=== PATIENT | female | born 1940 | race Caucasian/White ===

== ENCOUNTER 2019-06-10 07:27 | Day surgery (SDC) | payer OTHER ==
[2019-05-26 14:35] VITALS: BMI 30.5
--- NOTE | 2019-05-27 08:15 | HP ---
Satellite [facility] - Chief Complaint Chief Complaint: right middle finger pain, locking History of Present Illness: right middle trigger finger History Source: Patient Limitations to Obtaining History: No Limitations - Past Medical History Allergies/Adverse Reactions: Allergies Allergy/AdvReac Type Severity Reaction Status Date / Time No Known Allergies Allergy Verified 05/26/19 14:35 - Current Medications Current Medications: Home Medications Medication Instructions Recorded Aspirin [Ecotrin] 81 mg PO DAILY 05/26/19 Gabapentin [Neurontin -] 100 mg PO AM 05/26/19 Metformin HCl [Metformin HCl ER] 500 mg PO PRN 05/26/19 Omeprazole 20 mg PO DAILY 05/26/19 Sitagliptin Phosphate [Januvia] 50 mg PO DAILY 05/26/19 Satellite Physical Exam - Physical Examination General Appearance: Well Nourished ENT: Clear Lung: Clear to auscultation Heart: Regular rate & rhythm Breasts: Soft Abdomen: Soft Extremities: No edema Satellite Impression/Plan - Impression/Plan Impression: right middle finger trigger finger Operative Procedure: right middle finger trigger finger release Date to be Performed: 05/27/19
[~2019-06-10 07:27] MED LIST: LACTATED RINGERS SOLUTION 1,000 ML IV SCH; ONDANSETRON 4 MG/2 ML VIAL IVPUSH PRN; oxyCODONE HCL 5 MG TABLET PO PRN
--- NOTE | 2019-06-10 10:17 | HP ---
Satellite [facility] - Chief Complaint Chief Complaint: right middle finger trigger finger History of Present Illness: right middle finger pain History Source: Patient Limitations to Obtaining History: No Limitations - Past Medical History Allergies/Adverse Reactions: Allergies Allergy/AdvReac Type Severity Reaction Status Date / Time No Known Allergies Allergy Verified 05/26/19 14:35 - Current Medications Current Medications: Home Medications Medication Instructions Recorded Aspirin [Ecotrin] 81 mg PO DAILY 05/26/19 Gabapentin [Neurontin -] 100 mg PO AM 05/26/19 Metformin HCl [Metformin HCl ER] 500 mg PO PRN 05/26/19 Omeprazole 20 mg PO DAILY 05/26/19 Sitagliptin Phosphate [Januvia] 50 mg PO DAILY 05/26/19 Acetaminophen [Tylenol] 650 mg PO PRN 06/10/19 Satellite Physical Exam - Physical Examination Vital Signs: Vital Signs Period Temp Pulse Resp BP Sys/Nichols Pulse Ox Last 24 Hr 97.8 F-98 F 70-72 18-18 150-150/70-71 100 General Appearance: Well Nourished ENT: Clear Lung: Clear to auscultation Heart: Regular rate & rhythm Breasts: Soft Abdomen: Soft Extremities: No edema Satellite Impression/Plan - Impression/Plan Impression: right middle finger trigger finger Operative Procedure: right middle finger trigger finger release Date to be Performed: 06/10/19
[2019-06-10] MEDS ORDERED: LACTATED RINGERS SOLUTION 1,000 ML IV SCH (11:30)
[2019-06-10] MEDS ORDERED: ONDANSETRON 4 MG/2 ML VIAL IVPUSH PRN ×2 (11:30→13:33)
[2019-06-10] MEDS ORDERED: MIDAZOLAM HCL 2 MG/2 ML SINGLE DOSE VIAL ONE (11:44)
[2019-06-10] MEDS ORDERED: LIDOCAINE HCL 1%, 10 MG/ML (20ML VIAL) ONE (11:58)
[2019-06-10] MEDS ORDERED: BUPIVACAINE HCL/PF 0.5% (5 MG/ML) 30 ML VIAL IJ ONE ×3 (11:59→14:30)
[2019-06-10] MEDS ORDERED: PROPOFOL 20 ML ONE (12:02)
[2019-06-10] MEDS ORDERED: BUPIVACAINE HCL/PF 0.5% (5MG/ML) 10 ML VIAL IJ ONE (12:18)
[2019-06-10] MEDS ORDERED: LIDOCAINE HCL 1%, 10 MG/ML (50 mL VIAL) IJ ONE (12:18)
[2019-06-10] MEDS ORDERED: LIDOCAINE HCL 1%, 10 MG/ML (20ML VIAL) INF ONE ×2 (12:36→14:30)
[2019-06-10] MEDS ORDERED: PROMETHAZINE HCL 25 MG/1 ML VIAL IVPUSH PRN (13:33)
[2019-06-10] MEDS ORDERED: oxyCODONE HCL 5 MG TABLET PO PRN (13:33)
[2019-06-10] MEDS ORDERED: ceFAZolin SODIUM 1 GM VIAL IVPB ONE (14:20)
--- NOTE | 2019-06-10 14:52 | OP ---
Operative Note - Note: Operative Date: 06/10/19 Pre-Operative Diagnosis: right middle finger trigger finger Operation: right middle finger trigger finger release, tendon sheath excision Post-Operative Diagnosis: Same as Pre-op Surgeon: Javier Ashby Anesthesiologist/MANAGER OF BUSINESS OPERATIONS: Darby Graves Anesthesia: Local, MAC Specimens Removed: tendon sheath Estimated Blood Loss (mls): 0 Drains, Volume Out (mls): 0 Blood Volume Replaced (mls): 0 Fluid Volume Replaced (mls): 500 Operative Report Dictated: Yes
[2019-06-10 16:14] VITALS: BP 138/64; PULSE 78; TEMP 98
--- NOTE | 2019-06-10 19:35 | SPEC ---
DATE OF OPERATION: 06/10/2019 PREOPERATIVE DIAGNOSIS: Right middle finger trigger finger. POSTOPERATIVE DIAGNOSIS: Right middle finger trigger finger. PROCEDURE: Right middle finger trigger finger release and tendon sheath excision. SURGEON: Jerry Pittman MD ASSISTANTS: None. ANESTHESIOLOGIST: Luis Graves MD ANESTHESIA: MAC anesthesia with local injection 10 mL of 0.5% Marcaine and 1% Lidocaine mix. DRAINS: None. COMPLICATIONS: None. SPECIMENS: Tendon sheath, right middle finger. BLOOD LOSS: None. BLOOD GIVEN: None. FLUID REPLACEMENT: Plasma-Lyte 500 mL. This patient is a 79-year-old female with a right middle finger trigger finger. After understanding the potential risks, complications, alternatives, and benefits of surgery versus nonsurgical treatment, the patient elected to undergo this procedure. PROCEDURE: The patient was brought to the operating room, IV was placed, IV sedation was given. One gram of intravenous Ancef given. A tourniquet was applied to the right upper arm and the right upper extremity was prepped and draped in sterile fashion. The entire case was done under 3.8 loupe magnification. A marking pen was utilized to mitchell out a longitudinal incision in an already existing skin crease at the base of the right middle finger. Then 10 mL of 0.5% Marcaine mixed with 1% Lidocaine was injected in and around the incision. The right upper extremity was elevated, exsanguinated with an Esmarch bandage and the tourniquet inflated to 250 mmHg. A No. 15 scalpel blade was utilized to cut down through the skin. Subcutaneous hemostasis was achieved with the bipolar cautery. Additional dissection was done with Littler scissors until I was able to directly visualize the A1 nathan sheath in its entirety. Self-retaining retractors were placed into the wound. A free air elevator was used to free up the tissue on the radial side, the ulnar side distally and proximally under better visualization of A1 nathan sheath. Next, using a fresh No. 15 scalpel blade, I excised the central one-third of the A1 nathan sheath and passed it off the field as specimen, tendon sheath, right middle finger. I then completed the release, both distally and proximally, and brought the FDS and FDP tendons out through the wound with a Ragnell retractor. There were no abnormal points of compression. I was able to move the right middle finger without the tendons bunching up at all. The area was then copiously irrigated and washed out. I then checked one more time to make sure there were no abnormal points of compression. None were seen and therefore closure was begun. One stitch using 4-0 Vicryl was used in the deep dermal layer. Skin was reapproximated with 4-0 Nylon sutures in a horizontal mattress fashion. The area was then washed and dried, covered with Xeroform gauze, sterile 4x4s, fluffs between the fingers, Webril and Coban. The tourniquet was taken down after a total tourniquet time of 11 minutes. There were no complications during the case. The patient tolerated the procedure well and was brought to the Ambulatory recovery Room in stable condition. JERRY PITTMAN M.D. [id number]
--- NOTE | 2019-06-12 18:14 | PATH ---
Surgical Pathology Report Patient Name: OPAL FLORES [facility]. Rec. #: [id number] /Age/Gender: 1940 (Age: 79) / F Account: [id number] Location: [facility] Taken: 06/10/2019 Received: 06/11/2019 Reported: 06/12/2019 Physicians: Javier Ashby M.D. Specimen(s) Received RIGHT MIDDLE FINGER TENDON SHEATH Clinical History Right middle finger trigger finger Final Diagnosis TENDON SHEATH, MIDDLE FINGER, RIGHT, TRIGGER FINGER RELEASE: BENIGN DENSE FIBROCONNECTIVE TISSUE WITH DEGENERATIVE CHANGES. Electronically Signed Anuja Leon M.D. Gross Description Received in formalin labeled "right middle finger tendon sheath" are 3 white-cloud soft tissue fragments ranging in size from 0.3-1.5 cm in greatest dimension. Entire specimen is submitted in one cassette. MLSZ/06/11/2019 sanml/06/11/2019
== END 2019-06-10 16:14 | disposition home or self-care (01) ==
LOC: JASU-SURG 07:27
PROVIDERS: ATTEND Orthopaedic Surgery
PROC: 0LN70ZZ Release Right Hand Tendon, Open Approach (ICD-10-PCS; principal; 2019-06-10 11:00)
DX: M65.331 Trigger finger, right middle finger (principal)
CPT/HCPCS: 82962; 88304-TC